=== PATIENT | female | born 1975 | race Hispanic/Latino ===

== ENCOUNTER 2021-05-05 16:31 | Emergency (ER) | payer SELFPAY ==
[~2021-05-05] VITALS: Ht 165.1 cm; Wt 108.9 kg
[2021-05-05] MEDS ORDERED: 0.9%NACL 1000ML 1,000 ML IV ONE ×3 (16:58→18:30)
[2021-05-05 17:02] LABS: BASOPHILS % (AUTO) 0.5 % (0.0-5.0); EOSINOPHILS % (AUTO) 1.2 % (0.0-8.0); HEMATOCRIT 44.1 % (36-48); LYMPHOCYTES % (AUTO) 20.4 % (21.0-51.0); MEAN CORPUSCULAR HEMOGLOBIN 29.3 pg (27.0-33.0); MEAN CORPUSCULAR HGB CONC 33.3 g/dL (32.0-36.0); MONOCYTES % (AUTO) 5.8 % (3.0-13.0); NEUTROPHILS % (AUTO) 71.8 % (40.0-77.0); PLATELET COUNT (AUTO) 139 K/uL (130-400); RED BLOOD CELL COUNT(AUTO) 5.01 MIL/uL (4.00-5.50); RED CELL DISTRIBUTION WIDTH 12.9 % (11.0-15.5); WHITE BLOOD COUNT (AUTO) 9.3 K/uL (4.8-10.8)
[2021-05-05 17:11] LABS: CREATININE 1.2 mg/dL (0.5-1.5); POTASSIUM 3.5 mmol/L (3.5-5.1)
[2021-05-05 17:16] LABS: ALBUMIN 4.1 g/dL (3.5-5.0); BILIRUBIN,TOTAL 0.7 mg/dL (0.2-1.0); TOTAL PROTEIN, SERUM 8.2 g/dL (6.0-8.3)
[2021-05-05 17:48] LABS: APPEARANCE,URINE Cloudy (CLEAR); BILIRUBIN,URINE Negative (NEGATIVE); COLOR,URINE Yellow (YELLOW); GLUCOSE, URINE (UA) Negative (NEGATIVE); KETONES,URINE Negative (NEGATIVE); LEUKOCYTE ESTERASE ,URINE Trace (NEGATIVE); NITRATE,URINE Negative (NEGATIVE); OCCULT BLOOD,URINE Small (NEGATIVE); PH,URINE 8.5 (5.0-8.0); PROTEIN,URINE POS 2+ mg/dL (NEGATIVE)
[2021-05-05 18:04] LABS: BACTERIA,URINE Few /HPF (None Seen); SQUAMOUS EPITHELIAL CELL,UR Few /HPF (0-2)
[2021-05-05] MEDS: CEFTRIAXONE 1G VIAL IVP ONE ×2 (18:58→19:05)
[2021-05-05] MEDS ORDERED: CEPH500B PO (19:22)
[2021-05-05 19:26] VITALS: BP 109/99
== END 2021-05-05 19:59 | disposition home or self-care (01) ==
LOC: EDH 16:31
DX: T67.5XXA Heat exhaustion, unspecified, initial encounter (principal); I95.1 Orthostatic hypotension; N39.0 Urinary tract infection, site not specified; I10 Essential (primary) hypertension; E66.9 Obesity, unspecified; E03.9 Hypothyroidism, unspecified; X58.XXXA Exposure to other specified factors, initial encounter; Y93.89 Activity, other specified; Y92.89 Other specified places as the place of occurrence of the external cause; Y99.8 Other external cause status
CPT/HCPCS: 36415; 71045; 80053; 81001; 84484; 84703; 85025; 87088; 93005; 96361; 96374; 99285; J0696 ×2; J7030

== ENCOUNTER 2023-03-15 17:38 | Inpatient (IN) | payer BC ==
[~2023-03-15] VITALS: Ht 165.1 cm; Wt 110.4 kg
[~2023-03-15 17:38] MED LIST: CEPH500B PO
[2023-03-15 20:36] LABS: BASOPHILS # (AUTO) 0.05 K/uL (0.00-0.20); BASOPHILS % (AUTO) 0.6 % (0.0-5.0); EOSINOPHILS # (AUTO) 0.35 K/uL (0.00-0.70); HEMATOCRIT 39.7 % (36-48); IMMATURE GRANULOCYTE ABSOLUTE 0.01 K/uL (0-1); LYMPHOCYTES # (AUTO) 1.8 K/uL (1.0-4.8); MEAN CORPUSCULAR VOLUME 90.8 fL (79-99); MONOCYTES # (AUTO) 0.5 K/uL (0.1-1.0); MONOCYTES % (AUTO) 5.2 % (3.0-13.0); NEUTROPHILS % (AUTO) 69.1 % (40.0-77.0); PLATELET COUNT (AUTO) 172 K/uL (130-400); RED BLOOD CELL COUNT(AUTO) 4.37 MIL/uL (4.00-5.50); RED CELL DISTRIBUTION WIDTH 12.9 % (11.0-15.5); WHITE BLOOD COUNT (AUTO) 8.7 K/uL (4.8-10.8)
[2023-03-15 20:51] LABS: CREATININE 0.8 mg/dL (0.5-1.5); POTASSIUM 3.2 mmol/L (3.5-5.1)
[2023-03-15 20:55] LABS: ALBUMIN 2.8 g/dL (3.5-5.0); BILIRUBIN,TOTAL 0.5 mg/dL (0.2-1.0); TOTAL PROTEIN, SERUM 7.3 g/dL (6.0-8.3)
[2023-03-15] MEDS ORDERED: IOHEXOL-350 75 ML VIAL IV ONE (22:30)
[2023-03-15 22:41] LABS: APPEARANCE,URINE CLOUDY (CLEAR); BILIRUBIN,URINE NEGATIVE (NEGATIVE); COLOR,URINE YELLOW (YELLOW); GLUCOSE, URINE (UA) NEGATIVE (NEGATIVE); KETONES,URINE NEGATIVE (NEGATIVE); LEUKOCYTE ESTERASE ,URINE 25 Leu/uL (NEGATIVE); NITRATE,URINE NEGATIVE (NEGATIVE); OCCULT BLOOD,URINE LARGE (NEGATIVE); PH,URINE 6.5 (5.0-8.0); PROTEIN,URINE 600 mg/dL (NEGATIVE)
[2023-03-15 22:43] LABS: ADD UA MICROSCOPIC YES
[2023-03-15 22:45] LABS: INR 0.97 (0.85-1.15); PROTHROMBIN TIME 11.3 SEC (9.6-11.6)
[2023-03-15 22:47] LABS: BACTERIA,URINE MANY /HPF (None Seen); MUCUS,URINE MANY LPF (None Seen); RBC,URINE 26-50 /HPF (0-1)
[2023-03-15] MEDS ORDERED: CEFTRIAXONE 1G VIAL IVPB ONE (23:30)
[2023-03-16] MEDS ORDERED: CEFU500T67 PO (01:34)
[2023-03-16] MEDS ORDERED: LEVO100T12 PO (21:10)
[2023-03-16] MEDS ORDERED: METF-444 PO (21:10)
[2023-03-16] MEDS ORDERED: LOSA50TA64 PO (21:10)
[2023-03-16] MEDS ORDERED: GLUCAGON 1MG KIT 1 MG ML IM PRN (22:00)
[2023-03-16] MEDS ORDERED: POTASSIUM CHLORIDE 20MEQ/100ML 100 ML IV PRN (22:00)
[2023-03-16] MEDS ORDERED: ONDANSETRON 4MG INJ IV PRN (22:00)
[2023-03-16] MEDS ORDERED: DEXTROSE 50%-WATER 50 ML DISP.SYRIN IV PRN (22:00)
[2023-03-16] MEDS ORDERED: CEFTRIAXONE 2GM VIAL IVPB SCH (22:00)
[2023-03-16] MEDS ORDERED: MAGNESIUM 2GM PREMIX 50ML 50 ML IV PRN (22:00)
[2023-03-16] MEDS: LACTATED RINGERS 1000ML 1,000 ML IV SCH (23:05)
[2023-03-16 23:30] VITALS: BP 145/90; PULSE 79; RESP 18
[2023-03-17] MEDS ORDERED: GEMF600T89 PO (00:10)
[2023-03-17 00:34] VITALS: O2SAT 98
[2023-03-17 04:01] VITALS: BP 146/90; PULSE 76; RESP 17
[2023-03-17 04:04] LABS: MEAN CORPUSCULAR HEMOGLOBIN 29.3 pg (27.0-33.0); MEAN CORPUSCULAR HGB CONC 31.6 g/dL (32.0-36.0); MEAN CORPUSCULAR VOLUME 92.7 fL (79-99); RED BLOOD CELL COUNT(AUTO) 4.1 MIL/uL (4.00-5.50); RED CELL DISTRIBUTION WIDTH 12.7 % (11.0-15.5); WHITE BLOOD COUNT (AUTO) 8.4 K/uL (4.8-10.8)
[2023-03-17 04:24] LABS: HEMOGLOBIN A1C 7.1 % (4.0-6.0)
[2023-03-17 04:35] LABS: ALBUMIN 2.5 g/dL (3.5-5.0); BILIRUBIN,TOTAL 0.2 mg/dL (0.2-1.0); CREATININE 0.8 mg/dL (0.5-1.5); POTASSIUM 3.3 mmol/L (3.5-5.1); TOTAL PROTEIN, SERUM 6.7 g/dL (6.0-8.3)
[2023-03-17 05:00] LABS: THYROID STIMULATING HORMONE 93.44 uIU/mL (0.36-3.74)
[2023-03-17] MEDS: INSULIN HUMULIN R 100 UNIT/ML 3ML SQ SCH ×4 (06:09→21:00)
[2023-03-17 08:00] VITALS: BP 166/91; PULSE 64; RESP 18
[2023-03-17] MEDS: ASPIRIN 81 MG EC TAB PO SCH (10:07)
[2023-03-17] MEDS: ATORVASTATIN 20 MG TABLET PO SCH (10:07)
[2023-03-17] MEDS: FAMOTIDINE 20MG VIAL IV SCH ×2 (10:08→19:57)
[2023-03-17 12:00] VITALS: BP 109/62; PULSE 72; RESP 18
[2023-03-17] MEDS ORDERED: CLOPIDOGREL 300MG TAB PO ONE (13:30)
[2023-03-17] MEDS: LACTATED RINGERS 1000ML 1,000 ML IV SCH (13:35)
[2023-03-17 16:00] VITALS: BP 123/76; PULSE 84; RESP 18
[2023-03-17] MEDS: MEROPENEM 1 GM in 0.9%NACL 100ML 100 ML IVPB SCH (18:16)
[2023-03-17] MEDS: FISH OIL 1000 MG/CAP PO SCH (19:57)
[2023-03-17 20:00] VITALS: BP 135/84; PULSE 78; RESP 19
[2023-03-17] MEDS ORDERED: GEMFIBROZIL 600 MG TABLET PO SCH (21:00)
[2023-03-18] VITALS: BP 138/70; PULSE 78; RESP 18
[2023-03-18] MEDS: LACTATED RINGERS 1000ML 1,000 ML IV SCH (00:40)
[2023-03-18] MEDS: MEROPENEM 1 GM in 0.9%NACL 100ML 100 ML IVPB SCH ×2 (01:05→09:19)
[2023-03-18 04:00] VITALS: BP 128/62; PULSE 69; RESP 19
[2023-03-18 05:48] LABS: BASOPHILS # (AUTO) 0.07 K/uL (0.00-0.20); BASOPHILS % (AUTO) 0.8 % (0.0-5.0); EOSINOPHILS # (AUTO) 0.35 K/uL (0.00-0.70); EOSINOPHILS % (AUTO) 3.9 % (0.0-8.0); HEMATOCRIT 37.8 % (36-48); IMMATURE GRANULOCYTE ABSOLUTE 0.05 K/uL (0-1); LYMPHOCYTES # (AUTO) 2.2 K/uL (1.0-4.8); LYMPHOCYTES % (AUTO) 24.3 % (21.0-51.0); MEAN CORPUSCULAR HEMOGLOBIN 29.3 pg (27.0-33.0); MEAN CORPUSCULAR HGB CONC 31.5 g/dL (32.0-36.0); MEAN CORPUSCULAR VOLUME 93.1 fL (79-99); MONOCYTES # (AUTO) 0.5 K/uL (0.1-1.0); MONOCYTES % (AUTO) 5.4 % (3.0-13.0); NEUTROPHILS # (AUTO) 5.9 K/uL (1.8-7.7); PLATELET COUNT (AUTO) 170 K/uL (130-400); RED BLOOD CELL COUNT(AUTO) 4.06 MIL/uL (4.00-5.50); RED CELL DISTRIBUTION WIDTH 12.6 % (11.0-15.5); WHITE BLOOD COUNT (AUTO) 9.1 K/uL (4.8-10.8)
[2023-03-18] MEDS: INSULIN HUMULIN R 100 UNIT/ML 3ML SQ SCH ×2 (06:07→11:30)
[2023-03-18] MEDS ORDERED: LEVOTHYROXINE 25 MCG TABLET PO SCH (06:30)
[2023-03-18] MEDS ORDERED: LEVOTHYROXINE 112 MCG TABLET PO SCH (06:30)
[2023-03-18 06:35] LABS: ALBUMIN 2.6 g/dL (3.5-5.0); BILIRUBIN,TOTAL 0.3 mg/dL (0.2-1.0); POTASSIUM 3.9 mmol/L (3.5-5.1); TOTAL PROTEIN, SERUM 6.8 g/dL (6.0-8.3)
[2023-03-18 08:00] VITALS: BP 145/71; PULSE 62; RESP 16
[2023-03-18] MEDS ORDERED: LOSARTAN 50 MG TABLET PO SCH (09:00)
[2023-03-18] MEDS ORDERED: CLOPIDOGREL 75MG TAB PO SCH (09:00)
[2023-03-18] MEDS ORDERED: LEVOTHYROXINE 100 MCG TABLET PO SCH (09:00)
[2023-03-18] MEDS ORDERED: FENOFIBRATE NANOCRYSTALLIZED 145 MG TAB PO SCH (09:00)
[2023-03-18] MEDS: FAMOTIDINE 20MG VIAL IV SCH (09:00)
[2023-03-18] MEDS: ASPIRIN 81 MG EC TAB PO SCH (09:18)
[2023-03-18] MEDS: ATORVASTATIN 20 MG TABLET PO SCH (09:18)
[2023-03-18] MEDS: FISH OIL 1000 MG/CAP PO SCH (09:18)
[2023-03-18 12:00] VITALS: BP 115/62; PULSE 74; RESP 16
[2023-03-18] MEDS ORDERED: COMPOUND IV MISC 1 EACH IVSOLN MISC PRN (12:00)
[2023-03-18] MEDS ORDERED: ASPI-1443 PO (13:09)
[2023-03-18] MEDS ORDERED: FISH1CAP20 PO (13:09)
[2023-03-18] MEDS ORDERED: LEVO137C4 PO (13:09)
[2023-03-18] MEDS ORDERED: CLOP-31 PO (13:09)
[2023-03-18] MEDS ORDERED: FENO145T26 PO (13:09)
[2023-03-18] MEDS ORDERED: ATOR20TA65 PO (13:09)
== END 2023-03-18 15:35 | disposition home or self-care (01) | DRG 65 ==
LOC: EDH 17:38 → EDHIP 03-16 21:40 → 4AH 03-16 23:38
PROVIDERS: ADMIT Hospitalist; ATTEND Hospitalist
DX: I63.9 Cerebral infarction, unspecified (principal); E44.0 Moderate protein-calorie malnutrition; N39.0 Urinary tract infection, site not specified; Z16.12 Extended spectrum beta lactamase (ESBL) resistance; Z68.41 Body mass index [BMI] 40.0-44.9, adult; Z16.24 Resistance to multiple antibiotics; E11.9 Type 2 diabetes mellitus without complications; E66.01 Morbid (severe) obesity due to excess calories; B96.20 Unspecified Escherichia coli [E. coli] as the cause of diseases classified elsewhere; E87.6 Hypokalemia; I10 Essential (primary) hypertension; R31.9 Hematuria, unspecified; E03.9 Hypothyroidism, unspecified; E78.5 Hyperlipidemia, unspecified; E78.1 Pure hyperglyceridemia; Z79.02 Long term (current) use of antithrombotics/antiplatelets; Z79.82 Long term (current) use of aspirin; Z83.3 Family history of diabetes mellitus; Z86.73 Personal history of transient ischemic attack (TIA), and cerebral infarction without residual deficits
CPT/HCPCS: 36415; 70450; 70496; 70498; 70551; 71045; 80053; 80061; 81001; 82948; 83036; 84439; 84443; 84481; 85025; 85027; 85610; 85730; 87077; 87088; 87186; 92522; 92610; 93005; 93306; 93356; 96374; 97039; G0378; J0696; J2185; J3480; J3490; Q9967; G8980-CH; G8983-CH

== ENCOUNTER 2024-02-02 16:46 | Emergency (ER) | payer BC ==
[~2024-02-02] VITALS: Ht 162.6 cm; Wt 103.0 kg
[~2024-02-02 16:46] MED LIST changes: +ASPI-1443 PO; +ATOR20TA65 PO; -CEPH500B PO; +CLOP-31 PO; +FENO145T26 PO; +FISH1CAP20 PO; +LEVO137C4 PO; +LOSA50TA64 PO; +METF-444 PO
[2024-02-02 16:51] VITALS: BP 160/93; PULSE 84; RESP 18
[2024-02-02 17:22] LABS: BASOPHILS # (AUTO) 0.04 K/uL (0.00-0.20); BASOPHILS % (AUTO) 0.5 % (0.0-5.0); EOSINOPHILS # (AUTO) 0.19 K/uL (0.00-0.70); EOSINOPHILS % (AUTO) 2.3 % (0.0-8.0); HEMATOCRIT 40.1 % (36-48); IMMATURE GRANULOCYTE ABSOLUTE 0.03 K/uL (0-1); LYMPHOCYTES # (AUTO) 1.5 K/uL (1.0-4.8); LYMPHOCYTES % (AUTO) 18.1 % (21.0-51.0); MEAN CORPUSCULAR HEMOGLOBIN 29.7 pg (27.0-33.0); MEAN CORPUSCULAR HGB CONC 33.9 g/dL (32.0-36.0); MEAN CORPUSCULAR VOLUME 87.6 fL (79-99); MONOCYTES # (AUTO) 0.4 K/uL (0.1-1.0); MONOCYTES % (AUTO) 4.4 % (3.0-13.0); NEUTROPHILS # (AUTO) 6.2 K/uL (1.8-7.7); NEUTROPHILS % (AUTO) 74.3 % (40.0-77.0); PLATELET COUNT (AUTO) 144 K/uL (130-400); RED BLOOD CELL COUNT(AUTO) 4.58 MIL/uL (4.00-5.50); RED CELL DISTRIBUTION WIDTH 12.9 % (11.0-15.5); WHITE BLOOD COUNT (AUTO) 8.4 K/uL (4.8-10.8)
[2024-02-02 17:29] LABS: POTASSIUM 4.3 mmol/L (3.5-5.1)
[2024-02-02] MEDS ORDERED: ASPIRIN 81MG CHEW TAB PO ONE (17:30)
[2024-02-02 17:34] LABS: ALBUMIN 3.6 g/dL (3.5-5.0); BILIRUBIN,TOTAL 0.4 mg/dL (0.2-1.0); TOTAL PROTEIN, SERUM 7.4 g/dL (6.0-8.3)
== END 2024-02-02 20:16 | disposition left against medical advice (07) ==
LOC: EDH 16:46
DX: R07.89 Other chest pain (principal); R53.1 Weakness; E78.00 Pure hypercholesterolemia, unspecified; E11.9 Type 2 diabetes mellitus without complications; E03.9 Hypothyroidism, unspecified; E66.9 Obesity, unspecified; I10 Essential (primary) hypertension; I25.10 Atherosclerotic heart disease of native coronary artery without angina pectoris; Z79.82 Long term (current) use of aspirin; Z79.02 Long term (current) use of antithrombotics/antiplatelets; Z79.84 Long term (current) use of oral hypoglycemic drugs; Z79.899 Other long term (current) drug therapy; Z98.890 Other specified postprocedural states
CPT/HCPCS: 36415; 71045; 80053; 84484; 85025; 93005

== ENCOUNTER 2024-12-29 12:56 | Emergency (ER) | payer SELFPAY ==
[~2024-12-29] VITALS: Ht 165.1 cm; Wt 99.8 kg
[~2024-12-29 12:56] MED LIST changes: -LEVO137C4 PO; +LEVO137C5 PO
--- NOTE | 2024-12-29 13:03 | NUR ---
NOTIFIED CANDE LEWIS B/P , NO NEW ORDERS AT THIS TIME
--- NOTE | 2024-12-29 13:06 | ERN ---
ED Note History of Present Illness Stated Complaint: SOB,HYPERTENSION Chief Complaint: Chest Pain Time Seen by MD: 12:57 Dictation: PATIENT IS A 49-YEAR-OLD FEMALE COMING IN TODAY WITH ANTERIOR STERNAL CHEST PAIN ONSET YESTERDAY WHILE SHE WAS AT REST. SHE DENIES BACK PAIN JAW PAIN ARM PAIN. STATES SHE HAS NO HISTORY OF CAD STENTS OR BYPASSES. SHE STATES SHE HAS NEVER HAD CHEST PAIN BEFORE. DOES STATE SHE HAD A STROKE SEVERAL YEARS AGO. SHE SAID SHE CALLED HER DOCTOR TODAY ABOUT THE CHEST PAIN AND HE TOLD HER HE COULD SEE YOUR IN THE NEXT FEW DAYS. Allergies: Coded Allergies: No Allergy Information Available (Verified Allergy, Unknown, 02/02/24) No Known Drug Allergies (Unverified Allergy, Unknown, 02/02/24) Home Meds Active Scripts Levothyroxine Sodium (Levothyroxine) 137 Mcg Capsule, 137 MCG PO DAILY, #30 CAP 0 Refills Prov:[facility] 03/18/23 Atorvastatin Calcium (Atorvastatin Calcium) 20 Mg Tablet, 20 MG PO HS, #30 TAB 0 Refills Prov:[facility] 03/18/23 [place]-3 Fatty Acids/Fish Oil (Fish Oil 1000 mg/Cap) 1,000 Mg/Cap Capsule, 1000 MG PO BIDAC, #60 CAP 0 Refills Prov:[facility] 03/18/23 Fenofibrate Nanocrystallized (Fenofibrate) 145 Mg Tablet, 145 MG PO DAILY, #30 TAB 0 Refills Prov:[facility] 03/18/23 Clopidogrel Bisulfate (Plavix) 75 Mg Tablet, 75 MG PO DAILY, #90 TAB 0 Refills Prov:[facility] 03/18/23 Aspirin (Aspirin EC) 81 Mg Tablet.dr, 81 MG PO DAILY, #20 TAB 0 Refills Prov:[facility] 03/18/23 Reported Medications Losartan Potassium (Losartan Potassium) 50 Mg Tablet, 50 MG PO DAILY, TAB 03/16/23 Metformin HCl (Metformin HCl) 500 Mg Tablet, 500 MG PO DAILY, TAB 03/16/23 Past Medical History Past Medical History: CAD, CVA, Diabetes-Type II, High Cholesterol, Hypertension, Hypothyroid Additional Past Medical Hx: Obesity Surgical History: History: Not Applicable RN Note Reviewed/Agreed w/PFSH: Yes Review of System Dictation CONSTITUTIONAL: NEGATIVE EXCEPT FOR HPI HEAD/FACE: NEGATIVE EXCEPT FOR HPI EENT: NEGATIVE EXCEPT FOR HPI RESPIRATORY: NEGATIVE EXCEPT FOR HPI CHEST PAIN NONRADIATING GASTROINTESTINAL/ABDOMINAL: NEGATIVE EXCEPT FOR HPI GENITOURINARY: NEGATIVE EXCEPT FOR HPI MUSCULOSKELETAL: NEGATIVE EXCEPT FOR HPI INTEGUMENTARY: NEGATIVE EXCEPT FOR HPI NEUROLOGICAL/PSYCH: NEGATIVE EXCEPT FOR HPI HEMATOLOGIC/LYMPHATIC: NEGATIVE EXCEPT FOR HPI ALL SYSTEMS NEGATIVE, EXCEPT NOTED ABOVE. 13 POINT REVIEW OF SYSTEMS ASSESSED AND ALL NEGATIVE EXCEPT FOR ABOVE. Initial Vital Sign VS Vital Signs Date Time Temp Pulse Resp B/P (MAP) Pulse Ox O2 Delivery O2 Flow Rate FiO2 12/29/24 12:57 98.2 78 18 191/92 98 Room Air 12/29/24 13:22 0 21 Physical Exam Dictation VITAL SIGNS REVIEWED GENERAL APPEARANCE: ALERT, ORIENTED X 3, NO ACUTE DISTRESS, WELL DEVELOPED, NOURISHED. OB HEAD AND FACE: NON-TRAUMATIC. EYES: PERRL, PINK CONJUNCTIVAS, EYELID NO TRAUMA, ANTERIOR CHAMBER WITH ARCUS SENILIS. EARS: PINNAS INTACT AND NO SIGNS OF TRAUMA OR ERYTHEMA EAR CANALS CLEAR AND NO DISCHARGE TM NO ERYTHEMA NOSE: NO DISCHARGE, NO BLEEDING. OROPHARYNX: MOUTH NORMAL, TONGUE PINK, PHARYNX CLEAR,NO ERYTHEMA, TONSILS NO EXUDATES, NO ABSCESSES NOTED, MUCOUS MEMBRANE MOIST NECK: SUPPLE, NON-TENDER, NO THYROMEGALY, NO MASSES, NO JVD, NO BRUITS BREAST:DEFERRED CHEST:NO TENDERNESS, NO CREPITUS, NO PARADOXICAL MOVEMENT, NO RETRACTIONS LUNGS:CLEAR, WELL-VENTILATED, SYMMETRIC, NO RALES, NO WHEEZING, NO RHONCHI, NO STRIDOR, GOOD BREATH SOUNDS BILATERALLY HEART: REGULAR RATE, REGULAR RHYTHM, NO MURMUR, NO GALLOPS VASCULAR: NO PERIPHERAL EDEMA, ABDOMEN: SOFT, POSITIVE BOWEL SOUNDS, NONDISTENDED, NO GUARDING, NONTENDER, NO REBOUND, NO MASSES NO HEPATOMEGALY, NO SPLENOMEGALY, NO LEWIS'S SIGN, NO HERNIAS. RECTAL: DEFERRED GENITAL: DEFERRED NEUROLOGICAL: NORMAL SPEECH, MOTOR FUNCTION INTACT, SENSORY FUNCTION INTACT MUSCULOSKELETAL: NECK NONTENDER, FULL RANGE OF MOTION, BACK NONTENDER, FULL RANGE OF MOTION, EXTREMITIES: NONTENDER, FULL RANGE OF MOTION SKIN: COLOR PINK, DRY, NO TURGOR, NO RASH, NO LACERATIONS, NO ABRASIONS, NO CONTUSIONS. LYMPHATIC: DEFERRED Results (Laboratory/Radiology) Laboratory/Radiology Laboratory Tests Test 12/29/24 13:15 12/29/24 13:50 12/29/24 14:26 White Blood Count 9.0 K/uL (4.8-10.8) Red Blood Count 4.71 MIL/uL (4.00-5.50) Hemoglobin 14.1 g/dL (12.0-16.0) Hematocrit 42.3 % (36-48) Mean Corpuscular Volume 89.8 fL (79-99) Mean Corpuscular Hemoglobin 29.9 pg (27.0-33.0) Mean Corpuscular Hemoglobin Concent 33.3 g/dL (32.0-36.0) Red Cell Distribution Width 13.5 % (11.0-15.5) Platelet Count 154 K/uL (130-400) Mean Platelet Volume 11.7 fL (7.5-10.5) H Immature Granulocyte % (Auto) 0.4 % (0-1) Neutrophils (%) (Auto) 73.1 % (40.0-77.0) Lymphocytes (%) (Auto) 20.2 % (21.0-51.0) L Monocytes (%) (Auto) 3.9 % (3.0-13.0) Eosinophils (%) (Auto) 1.8 % (0.0-8.0) Basophils (%) (Auto) 0.6 % (0.0-5.0) Neutrophils # (Auto) 6.6 K/uL (1.8-7.7) Lymphocytes # (Auto) 1.8 K/uL (1.0-4.8) Monocytes # (Auto) 0.4 K/uL (0.1-1.0) Eosinophils # (Auto) 0.16 K/uL (0.00-0.70) Basophils # (Auto) 0.05 K/uL (0.00-0.20) Absolute Immature Granulocyte (auto 0.04 K/uL (0-1) Nucleated Red Blood Cells 0.0 % (0.0-0.19) Sodium Level 140 mmol/L (136-145) Potassium Level 4.1 mmol/L (3.5-5.1) Chloride Level 104 mmol/L (101-111) Carbon Dioxide Level 26 mmol/L (21-32) Blood Urea Nitrogen 19 mg/dL (7-18) H Creatinine 1.1 mg/dL (0.5-1.0) H Glomerular Filtration Rate Calc 61 mL/min (>90) Random Glucose 111 mg/dL (70-105) H Total Calcium 8.7 mg/dL (8.5-10.1) Total Creatine Kinase 123 U/L (21-232) Troponin I High Sensitivity 16 ng/L (4-50) 14 ng/L (4-50) B-Type Natriuretic Peptide 37 pg/mL (0-100) Serum Test, Qualitative NEGATIVE (NEGATIVE) Urine Color COLORLESS (YELLOW) Urine Appearance CLEAR (CLEAR) Urine pH 6.5 (5.0-8.0) Urine Specific [place] 1.008 (1.001-1.031) Urine Protein 100 mg/dL (NEGATIVE) H Urine Glucose (UA) NEGATIVE mg/dL (NEGATIVE) Urine Ketones NEGATIVE mg/dL (NEGATIVE) Urine Occult Blood MODERATE (NEGATIVE) H Urine Nitrate NEGATIVE (NEGATIVE) Urine Bilirubin NEGATIVE mg/dL (NEGATIVE) Urine Urobilinogen 0.2 mg/dL (0.2-1.0) Urine Leukocyte Esterase NEGATIVE [place]/uL Urine RBC 2-5 /HPF (0-1) H Urine WBC 2-5 /HPF (0-1) H Urine Squamous Epithelial Cells RARE /HPF (0-2) Urine Bacteria None /HPF (None Seen) Labs Reviewed?: Yes EKG: (+) NSR EKG Comment: EKG NORMAL SINUS RHYTHM/HEART RATE 73/AXIS NORMAL/NO ECTOPY 1500/2ND EKG SINUS BRADYCARDIA/HEART RATE 58/AXIS NORMAL/NO ECTOPY HEART SCORE IS TWO ED Course ED Course Orders Procedure Category Date Status Time Vital Signs Per CPOE 12/29/24 Transmitted Routine 13:01 B-Type Natriuretic LAB 12/29/24 Complete Peptide 13:01 Chest 1vw RAD 12/29/24 Resulted 13:01 12 Lead Ekg Tracing- EKG 12/29/24 Complete Technical 13:01 Oxygen By Nc/Pulse Ox CPOE 12/29/24 Transmitted 13:01 Maintain Iv CPOE 12/29/24 Transmitted 13:01 Iv Insertion CPOE 12/29/24 Transmitted 13:01 Cardiac Monitoring CPOE 12/29/24 Transmitted 13:01 Pulse Oximetry With CPOE 12/29/24 Transmitted Vs And Prn 13:01 Cbc With Differential LAB 12/29/24 Complete 13:01 Activity: Br W/Brp CPOE 12/29/24 Transmitted With Assist 13:01 Creatine Kinase, Total LAB 12/29/24 Complete 13:01 Troponin I High LAB 12/29/24 Complete Sensitivity 13:01 Urinalysis Profile LAB 12/29/24 Complete 13:01 Basic Metabolic Panel LAB 12/29/24 Complete 13:01 Testing, LAB 12/29/24 Complete Serum Hcg 13:38 Troponin I High LAB 12/29/24 Complete Sensitivity 14:08 12 Lead Ekg Tracing- EKG 12/29/24 Complete Technical 14:08 Vital Signs Date Time Temp Pulse Resp B/P (MAP) Pulse Ox O2 Delivery O2 Flow Rate FiO2 12/29/24 14:27 98.2 74 18 143/74 98 Room Air* 0 21 12/29/24 13:22 74 18 154/87 98 Room Air* 0 21 12/29/24 12:57 98.2 78 18 191/92 98 Room Air 1505/NO PAIN AT THIS TIME PATIENT WILL BE DISCHARGED HOME WITH ATYPICAL CHEST PAIN, STAGE 3 CHRONIC KIDNEY DISEASE AND TOLD TO SEE HER PRIMARY CARE DOCTOR. HEART Score Response (Comments) Value History: Low suspicion (0) 0 Age: 45-65yrs (+1) 1 Risk Factors: 1-2 risk factors (+1) 1 Initial Troponin: Normal limit (0) 0 Total 2 Medical Decision Making MDM MDM: DIFFERENTIAL DIAGNOSIS: ACS/AMI/ELECTROLYTE IMBALANCE/DEHYDRATION/PNEUMONIA/BRONCHITIS/ATYPICAL CHEST PAIN/COSTOCHONDRITIS. RATIONALE: TESTS CONSIDERED AND ORDERED SECONDARY TO SHARED DECISION MAKING INCLUDE: EKG/LABS/RADIOLOGY PREVIOUS OUTSIDE RECORDS REVIEWED: OLD ER VISITS. RISK OF COMPLICATION AND/OR MORBIDITY OR MORTALITY OF PATIENT MANAGEMENT: NONE MEDICATIONS-PER MEDICATION RECONCILIATION NEED FOR HOSPITALIZATION: PATIENT DOES NOT MEET CRITERIA FOR HOSPITALIZATION. NO NEED FOR EMERGENCY MAJOR/MINOR SURGERY: NO THERE ARE NO SOCIAL CONCERNS WITH THIS PATIENT. PRESCRIPTION DRUG MANAGEMENT NONE PRESCRIPTIONS WILL INCLUDE SYMPTOMATIC CARE PATIENT'S PRIOR EXTERNAL MEDICAL RECORDS FROM OTHER ER VISITS WERE REVIEWED BY ME INDICATED. PRIOR TESTING AND RESULTS FROM PREVIOUS VISITS WERE REVIEWED. PRIOR TESTS WERE TAKEN INTO ACCOUNT WITH MEDICAL DECISION MAKING AND RESOURCE UTILIZATION, INDEPENDENT HISTORIAN/HISTORIANS WERE USED TO OBTAIN COMPLETE MEDICAL HISTORY. I INDEPENDENTLY INTERPRETED THE TEST THAT WERE PERFORMED, RESULTS WERE REVIEWED BY ME AND CONSIDERED FINDINGS ON RADIOLOGY IF ORDERED. MEDICAL MANAGEMENT AND EXAMINATION INTERPRETATION DISCUSSIONS WERE HAD BY ME WITH OTHER QUALIFIED HEALTHCARE PROFESSIONALS INDICATED FOR THE PATIENT'S CARE. DX & DISP Disposition: Discharge Departure Impression: Primary Impression: Atypical chest pain Additional Impression: Chronic kidney disease Condition: Stable Additional Instructions: FOLLOW-UP WITH PRIMARY CARE PROVIDER IN 1 TO 2 DAYS. TAKE MEDICATIONS DIRECTED HERE IN THE EMERGENCY ROOM. OKAY TO CONTINUE HOME MEDICATIONS UNLESS OTHERWISE DISCUSSED DURING YOUR VISIT IN THE EMERGENCY ROOM TODAY. RETURN TO YOUR NEAREST EMERGENCY ROOM IF SYMPTOMS WORSEN OR IF THERE IS NO IMPROVEMENT. CALL 911 IF YOU NEED IMMEDIATE ASSISTANCE. TAKE TYLENOL OR MOTRIN [id number]-GGPLIEG NEEDED AND IF NO CONTRAINDICATIONS ARE PRESENT. INCREASE ORAL HYDRATION. A WOUND CULTURE OR URINE CULTURE WAS ORDERED HERE IN THE EMERGENCY ROOM DEPARTMENT PLEASE FOLLOW-UP WITH PRIMARY CARE PROVIDER AND ADVISE THEM TO GET REPEAT PORTS FROM OUR FACILITY. IF YOU HAD ANY BELGICA WRAP/SPLINTS THAT WERE APPLIED HERE, PLEASE DO NOT REMOVE THEM UNTIL YOU SEE YOUR PRIMARY CARE OR SPECIALTY. SEE YOUR PRIMARY CARE DOCTOR FOR FOLLOW UP IN THE NEXT 2-3 DAYS Referrals: JOE SAMUELS (PCP) Time of Disposition: 15:05 I have reviewed the case, and I agree with, Diagnosis and Plan CANDE ALBARADO NP Dec 29, 2024 13:06
[2024-12-29 13:19] LABS: BASOPHILS # (AUTO) 0.05 K/uL (0.00-0.20); BASOPHILS % (AUTO) 0.6 % (0.0-5.0); EOSINOPHILS # (AUTO) 0.16 K/uL (0.00-0.70); EOSINOPHILS % (AUTO) 1.8 % (0.0-8.0); HEMATOCRIT 42.3 % (36-48); IMMATURE GRANULOCYTE ABSOLUTE 0.04 K/uL (0-1); LYMPHOCYTES # (AUTO) 1.8 K/uL (1.0-4.8); LYMPHOCYTES % (AUTO) 20.2 % (21.0-51.0); MEAN CORPUSCULAR HEMOGLOBIN 29.9 pg (27.0-33.0); MEAN CORPUSCULAR HGB CONC 33.3 g/dL (32.0-36.0); MEAN CORPUSCULAR VOLUME 89.8 fL (79-99); MONOCYTES # (AUTO) 0.4 K/uL (0.1-1.0); MONOCYTES % (AUTO) 3.9 % (3.0-13.0); NEUTROPHILS # (AUTO) 6.6 K/uL (1.8-7.7); NEUTROPHILS % (AUTO) 73.1 % (40.0-77.0); PLATELET COUNT (AUTO) 154 K/uL (130-400); RED BLOOD CELL COUNT(AUTO) 4.71 MIL/uL (4.00-5.50); RED CELL DISTRIBUTION WIDTH 13.5 % (11.0-15.5)
--- NOTE | 2024-12-29 13:26 | NUR ---
PT WAS GIVEN URINE CUP
[2024-12-29 13:27] LABS: CREATININE 1.1 mg/dL (0.5-1.0); POTASSIUM 4.1 mmol/L (3.5-5.1)
[2024-12-29 13:46] LABS: B-TYPE NATRIURETIC PEPTIDE 37 pg/mL (0-100)
--- NOTE | 2024-12-29 13:57 | EKG ---
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
[2024-12-29 14:21] LABS: APPEARANCE,URINE CLEAR (CLEAR); BILIRUBIN,URINE NEGATIVE (NEGATIVE); COLOR,URINE COLORLESS (YELLOW); GLUCOSE, URINE (UA) NEGATIVE (NEGATIVE); KETONES,URINE NEGATIVE (NEGATIVE); LEUKOCYTE ESTERASE ,URINE NEGATIVE Leu/uL (NEGATIVE); NITRATE,URINE NEGATIVE (NEGATIVE); OCCULT BLOOD,URINE MODERATE (NEGATIVE); PH,URINE 6.5 (5.0-8.0); PROTEIN,URINE 100 mg/dL (NEGATIVE); UROBILINOGEN,URINE 0.2 mg/dL (0.2-1.0)
--- NOTE | 2024-12-29 14:26 | EKG ---
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
[2024-12-29 14:27] LABS: ADD UA MICROSCOPIC YES
[2024-12-29 14:29] LABS: MUCUS,URINE RARE LPF (None Seen); SQUAMOUS EPITHELIAL CELL,UR RARE /HPF (0-2)
--- NOTE | 2024-12-29 14:50 | HMCIMG ---
Exam Type: CHEST 1VW Clinical Information: CHEST PAIN Comparison: None Findings: The lungs are clear of infiltrates. The heart is normal in size. The bony and soft tissue structures of the chest are unremarkable. Impression: Clear lungs.
[2024-12-29 15:22] VITALS: BP 116/69; PULSE 74; RESP 18; TEMP 98.2; O2SAT 98
== END 2024-12-29 15:23 | disposition home or self-care (01) ==
LOC: EDH 12:56
DX: I12.9 Hypertensive chronic kidney disease with stage 1 through stage 4 chronic kidney disease, or unspecified chronic kidney disease (principal); E11.22 Type 2 diabetes mellitus with diabetic chronic kidney disease; N18.9 Chronic kidney disease, unspecified; R07.89 Other chest pain; E03.9 Hypothyroidism, unspecified; E66.9 Obesity, unspecified; E78.00 Pure hypercholesterolemia, unspecified; I25.10 Atherosclerotic heart disease of native coronary artery without angina pectoris; Z79.02 Long term (current) use of antithrombotics/antiplatelets; Z79.82 Long term (current) use of aspirin; Z79.84 Long term (current) use of oral hypoglycemic drugs; Z79.890 Hormone replacement therapy; Z79.899 Other long term (current) drug therapy; Z86.73 Personal history of transient ischemic attack (TIA), and cerebral infarction without residual deficits
CPT/HCPCS: 36415; 71045; 80048; 81001; 82550; 83880; 84484; 84703; 85025; 93005; 99285